=== PATIENT | female | born 1985 | race Caucasian/White ===

== ENCOUNTER 2022-08-23 17:19 | Day surgery (SDC) | payer BC ==
[2022-08-23 18:43] VITALS: BMI 27.8
== END 2022-08-23 19:55 | disposition home or self-care (01) ==
LOC: CSHLD/OP 17:19
PROVIDERS: ATTEND Advanced Practice Midwife
DX: Z36.89 Encounter for other specified antenatal screening (principal); O36.8130 Decreased fetal movements, third trimester, not applicable or unspecified; Z3A.31 31 weeks gestation of pregnancy
CPT/HCPCS: 59025; 76819; 99282

== ENCOUNTER 2022-10-17 18:48 | Inpatient (IN) | payer BC ==
[~2022-10-17 18:48] MED LIST: Bupivacaine 0.25% HCL 30 ML VIAL ONE; Bupivacaine PF 0.5% 30 ML VIAL ONE; Butorphanol Tartrate 1 MG/ML VIAL SLOW IVP PRN; HYDROcodone/Acetaminophen 5/325 mg Tablet PO PRN; Ibuprofen 800 MG TAB PO PRN; Lidocaine 1% (PF) 30 ML VIAL SC PRN; Methylergonovine 0.2 MG/ML VIAL IM PRN; Misoprostol 200 MCG TAB PR PRN; NS w/ Oxytocin 30 units 500 ML IV SCH; Ondansetron PF 4 MG/2 ML Vial IVP PRN; Penicillin G Potassium 5 MILL.UNITS in Sodium Chloride 0.9% 100 ML IVPB SCH; Promethazine HCl 25 MG/ML VIAL IM PRN; hydrALAZINE 20 MG/ML VIAL SLOW IVP PRN
[2022-10-17 19:39] VITALS: BMI 29.1
[2022-10-17] MEDS: Lactated Ringer's 1,000 ML IV SCH ×2 (19:48→23:52)
[2022-10-17] MEDS: Misoprostol 100 MCG TAB VAG SCH ×2 (20:11→23:52)
[2022-10-17 20:56] LABS: Glucose 114 mg/dL (70-105)
[2022-10-17 20:57] LABS: Hemoglobin 12.5 g/dL (12.0-15.5); Mean Corpuscular Hemoglobin 30.3 pg (27.0-33.0); Mean Corpuscular Volume 89.1 fl (81.6-98.3); Mean Platelet Volume 14.4 fl (7.4-10.4); Platelet Count 112 10x3/uL (150-450); RBC Distribution Width 13.9 % (11.5-14.5); Red Blood Cell (RBC) Count 4.13 10x6/uL (3.90-5.03); White Blood Cell (WBC) Count 8.1 10x3/uL (3.5-10.5)
[2022-10-17 21:21] LABS: Syphilis Antibody Nonreactive (Nonreactive); Syphilis Antibody Index 0.04 S/CO (<1.00 Non-Reactive)
[2022-10-17 21:23] LABS: HBSAg Index 0.19 S/CO (0-0.99); Hep B Surf Ag Non-Reactive S/CO (NonReactive)
[2022-10-17 21:49] LABS: ALT (SGPT) 164 U/L (8-55); AST (SGOT) 108 U/L (5-34); Albumin 3.1 g/dL (3.5-5.0); Alkaline Phosphatase 226 U/L (40-110); Anion Gap 14 mmol/L (10-20); BUN (Urea Nitrogen) 14 mg/dL (7.0-18.7); Bilirubin, Total 0.3 mg/dL (0.2-1.2); Calc. Creatinine Clearance 127 mL/min (70-130); Calcium 9.2 mg/dL (7.8-10.44); Carbon Dioxide 19 mmol/L (22-29); Chloride 108 mmol/L (98-107); Estimated GFR 103; Globulin 2.9 g/dL (2.4-3.5); Glucose 85 mg/dL (70-105); Potassium 3.7 mmol/L (3.5-5.1); Sodium 137 mmol/L (136-145)
[2022-10-18] MEDS: Misoprostol 100 MCG TAB VAG SCH ×4 (00:31→13:01)
[2022-10-18 06:33] LABS: #Eosinphils 0.1 10x3/uL (0.0-0.5); #Monocytes 0.7 10x3/uL (0.0-1.1); #Neutrophils 7.4 10x3/uL (1.5-8.4); %Basophils 0.3 % (0.0-2.0); %Eosinophils 0.8 % (0.0-6.0); %Lymphocytes 19.8 % (18.0-47.0); %Monocytes 6.7 % (0.0-10.0); %Neutrophils 71.8 % (40.0-75.0); Mean Corpuscular HGB CONC 34.1 g/dL (32.0-36.0); Mean Corpuscular Hemoglobin 30.2 pg (27.0-33.0); Mean Corpuscular Volume 88.4 fl (81.6-98.3); Mean Platelet Volume 13.9 fl (7.4-10.4); Platelet Count 97 10x3/uL (150-450); RBC Distribution Width 13.8 % (11.5-14.5); Red Blood Cell (RBC) Count 3.98 10x6/uL (3.90-5.03); White Blood Cell (WBC) Count 10.1 10x3/uL (3.5-10.5)
[2022-10-18 06:45] LABS: Creatinine, Urine 81.32 mg/dL (47-110); Protein, Urine Random Quant Less than 10 mg/dL (1-14)
[2022-10-18 06:52] LABS: ALT (SGPT) 166 U/L (8-55); AST (SGOT) 117 U/L (5-34); Albumin 2.9 g/dL (3.5-5.0); Alkaline Phosphatase 231 U/L (40-110); Anion Gap 14 mmol/L (10-20); BUN (Urea Nitrogen) 11 mg/dL (7.0-18.7); Bilirubin, Total 0.6 mg/dL (0.2-1.2); Calc. Creatinine Clearance 140 mL/min (70-130); Calcium 8.8 mg/dL (7.8-10.44); Carbon Dioxide 18 mmol/L (22-29); Chloride 103 mmol/L (98-107); Estimated GFR 115; Globulin 2.9 g/dL (2.4-3.5); Glucose 78 mg/dL (70-105); Potassium 3.5 mmol/L (3.5-5.1); Protein, Total 5.8 g/dL (6.0-8.3); Sodium 131 mmol/L (136-145)
[2022-10-18] MEDS ORDERED: Fentanyl 2 mcg/Bup 0.1% Cadd 100 ML ONE ×2 (07:11→16:33)
[2022-10-18] MEDS: Lactated Ringer's 1,000 ML IV SCH (07:30)
[2022-10-18] MEDS: Fentanyl 2 mcg/Bupivacaine 0.1% Cassette 100 ML EPIDURAL SCH ×2 (07:44→16:37)
[2022-10-18 08:14] LABS: Bilirubin, Total 0.6 mg/dL (0.2-1.2); Lactic Acid 1.2 mmol/L (0.5-2.2)
[2022-10-18] MEDS ORDERED: Lactated Ringer's 500 ML IV PRN (09:15)
[2022-10-18] MEDS ORDERED: Promethazine HCl 25 MG/ML VIAL IM PRN (09:15)
[2022-10-18] MEDS ORDERED: Naloxone HCl 0.4 mg/ml Vial IVP PRN ×2 (09:15)
[2022-10-18] MEDS ORDERED: Moisturizing Cream (Eucerin) 113 GM JAR TOP PRN (09:15)
[2022-10-18] MEDS ORDERED: Communication Order-Pharmacy FS SCH (09:15)
[2022-10-18] MEDS ORDERED: Ondansetron PF 4 MG/2 ML Vial IVP PRN (09:15)
[2022-10-18] MEDS ORDERED: Acetaminophen 325 MG TAB PO PRN (09:15)
[2022-10-18] MEDS ORDERED: diphenhydrAMINE 50 MG/ML VIAL IVP PRN (09:15)
[2022-10-18] MEDS ORDERED: ePHEDrine Sulfate 50 MG/10 ML VIAL SLOW IVP PRN (09:15)
[2022-10-18 11:01] LABS: D-Dimer Test 1.97 mg/L FEU (0.19-0.50); PTT 25.9 sec (22.0-33.0); Prothrombin Time 10.5 sec (9.5-12.1)
[2022-10-18] MEDS: Penicillin G 2.5 MILL.units 2.5 MILL.UNITS in Premix Bag 1 BAG IVPB SCH ×2 (13:02→13:03)
[2022-10-18 15:06] LABS: Hemoglobin 11.4 g/dL (12.0-15.5); Mean Corpuscular HGB CONC 34.2 g/dL (32.0-36.0); Mean Corpuscular Hemoglobin 30.6 pg (27.0-33.0); Mean Corpuscular Volume 89.3 fl (81.6-98.3); Mean Platelet Volume 14.2 fl (7.4-10.4); Platelet Count 95 10x3/uL (150-450); RBC Distribution Width 13.9 % (11.5-14.5); Red Blood Cell (RBC) Count 3.73 10x6/uL (3.90-5.03); White Blood Cell (WBC) Count 8.6 10x3/uL (3.5-10.5)
[2022-10-18 15:13] LABS: ALT (SGPT) 183 U/L (8-55); AST (SGOT) 132 U/L (5-34); Albumin 2.8 g/dL (3.5-5.0); Alkaline Phosphatase 212 U/L (40-110); Anion Gap 13 mmol/L (10-20); BUN (Urea Nitrogen) 11 mg/dL (7.0-18.7); Bilirubin, Total 0.5 mg/dL (0.2-1.2); Calc. Creatinine Clearance 119 mL/min (70-130); Calcium 8.6 mg/dL (7.8-10.44); Carbon Dioxide 19 mmol/L (22-29); Chloride 103 mmol/L (98-107); Estimated GFR 96; Globulin 2.7 g/dL (2.4-3.5); Glucose 81 mg/dL (70-105); Protein, Total 5.5 g/dL (6.0-8.3); Sodium 131 mmol/L (136-145)
[2022-10-18 15:14] LABS: MDiff Complete? YES; Manual Diff?? YES
[2022-10-18 15:40] LABS: Band 4 % (5-11); Lymphocytes 18 % (21-51); Monocytes 5 % (0-10); Neutrophil 72 % (42-75); Platelet Morphology Comment Appears Decreased
[2022-10-18 15:43] LABS: Anisocytosis SLIGHT = 6-15 cells (100X) (0-5/hpf); Giant Platelets SLIGHT; Large Platelets SLIGHT; Macrocytosis SLIGHT = 6-15 cells (100X) (0-5/hpf); Microcytosis SLIGHT = 6-15 cells (100X) (0-5/hpf)
[2022-10-18 20:56] LABS: #Monocytes 0.8 10x3/uL (0.0-1.1); #Neutrophils 7.5 10x3/uL (1.5-8.4); %Basophils 0.4 % (0.0-2.0); %Eosinophils 0.3 % (0.0-6.0); %Lymphocytes 15.8 % (18.0-47.0); %Neutrophils 74.8 % (40.0-75.0); Hemoglobin 12.3 g/dL (12.0-15.5); Mean Corpuscular HGB CONC 33.9 g/dL (32.0-36.0); Mean Corpuscular Volume 88.5 fl (81.6-98.3); Platelet Count 101 10x3/uL (150-450); RBC Distribution Width 13.8 % (11.5-14.5)
[2022-10-18 21:07] LABS: PTT 25.8 sec (22.0-33.0); Prothrombin Time 10.5 sec (9.5-12.1)
[2022-10-18 21:09] LABS: ALT (SGPT) 186 U/L (8-55); AST (SGOT) 129 U/L (5-34); Albumin 2.9 g/dL (3.5-5.0); Alkaline Phosphatase 223 U/L (40-110); Anion Gap 13 mmol/L (10-20); BUN (Urea Nitrogen) 11 mg/dL (7.0-18.7); Bilirubin, Total 0.5 mg/dL (0.2-1.2); Calc. Creatinine Clearance 110 mL/min (70-130); Calcium 8.6 mg/dL (7.8-10.44); Carbon Dioxide 21 mmol/L (22-29); Chloride 103 mmol/L (98-107); Estimated GFR 87; Globulin 2.8 g/dL (2.4-3.5); Glucose 76 mg/dL (70-105); Potassium 4.2 mmol/L (3.5-5.1); Protein, Total 5.7 g/dL (6.0-8.3); Sodium 133 mmol/L (136-145)
[2022-10-19] MEDS: Fentanyl 2 mcg/Bupivacaine 0.1% Cassette 100 ML EPIDURAL SCH ×3 (00:47→16:56)
[2022-10-19] MEDS: Penicillin G 2.5 MILL.units 2.5 MILL.UNITS in Premix Bag 1 BAG IVPB SCH ×3 (01:45→13:42)
[2022-10-19 07:46] LABS: #Monocytes 0.8 10x3/uL (0.0-1.1); #Neutrophils 7.5 10x3/uL (1.5-8.4); %Basophils 0.4 % (0.0-2.0); %Eosinophils 0.4 % (0.0-6.0); %Lymphocytes 17.3 % (18.0-47.0); %Monocytes 8.1 % (0.0-10.0); Hemoglobin 12.1 g/dL (12.0-15.5); Mean Corpuscular HGB CONC 33.8 g/dL (32.0-36.0); Mean Corpuscular Hemoglobin 30.2 pg (27.0-33.0); Mean Corpuscular Volume 89.3 fl (81.6-98.3); Mean Platelet Volume 14.1 fl (7.4-10.4); Platelet Count 100 10x3/uL (150-450); RBC Distribution Width 13.8 % (11.5-14.5); Red Blood Cell (RBC) Count 4.01 10x6/uL (3.90-5.03); White Blood Cell (WBC) Count 10.2 10x3/uL (3.5-10.5)
[2022-10-19 07:47] LABS: ALT (SGPT) 164 U/L (8-55); AST (SGOT) 111 U/L (5-34); Albumin 2.7 g/dL (3.5-5.0); Alkaline Phosphatase 228 U/L (40-110); Anion Gap 15 mmol/L (10-20); BUN (Urea Nitrogen) 11 mg/dL (7.0-18.7); Bilirubin, Total 0.6 mg/dL (0.2-1.2); Calc. Creatinine Clearance 121 mL/min (70-130); Calcium 8.5 mg/dL (7.8-10.44); Carbon Dioxide 18 mmol/L (22-29); Chloride 102 mmol/L (98-107); Estimated GFR 97; Globulin 2.8 g/dL (2.4-3.5); Glucose 84 mg/dL (70-105); Potassium 4.1 mmol/L (3.5-5.1); Protein, Total 5.5 g/dL (6.0-8.3); Sodium 131 mmol/L (136-145)
[2022-10-19] MEDS ORDERED: Fentanyl 100 MCG/2 ML VIAL ONE (13:51)
[2022-10-19 13:59] LABS: #Eosinphils 0.1 10x3/uL (0.0-0.5); #Monocytes 0.8 10x3/uL (0.0-1.1); #Neutrophils 8.2 10x3/uL (1.5-8.4); %Basophils 0.4 % (0.0-2.0); %Eosinophils 0.5 % (0.0-6.0); %Lymphocytes 14.4 % (18.0-47.0); %Monocytes 7.6 % (0.0-10.0); %Neutrophils 76.2 % (40.0-75.0); Hemoglobin 11.8 g/dL (12.0-15.5); Mean Corpuscular HGB CONC 33.9 g/dL (32.0-36.0); Mean Corpuscular Hemoglobin 30.3 pg (27.0-33.0); Mean Corpuscular Volume 89.5 fl (81.6-98.3); Mean Platelet Volume 13.7 fl (7.4-10.4); Platelet Count 105 10x3/uL (150-450); RBC Distribution Width 13.8 % (11.5-14.5); Red Blood Cell (RBC) Count 3.89 10x6/uL (3.90-5.03); White Blood Cell (WBC) Count 10.7 10x3/uL (3.5-10.5)
[2022-10-19 14:18] LABS: ALT (SGPT) 173 U/L (8-55); AST (SGOT) 112 U/L (5-34); Albumin 2.8 g/dL (3.5-5.0); Alkaline Phosphatase 228 U/L (40-110); Anion Gap 13 mmol/L (10-20); BUN (Urea Nitrogen) 11 mg/dL (7.0-18.7); Bilirubin, Total 0.5 mg/dL (0.2-1.2); Calc. Creatinine Clearance 108 mL/min (70-130); Calcium 8.7 mg/dL (7.8-10.44); Carbon Dioxide 20 mmol/L (22-29); Chloride 101 mmol/L (98-107); Estimated GFR 86; Globulin 2.8 g/dL (2.4-3.5); Glucose 71 mg/dL (70-105); Protein, Total 5.6 g/dL (6.0-8.3); Sodium 130 mmol/L (136-145)
[2022-10-19] MEDS ORDERED: Fentanyl 2 mcg/Bup 0.1% Cadd 100 ML ONE (16:50)
[2022-10-19] MEDS ORDERED: Methylergonovine 0.2 MG/ML VIAL ONE (20:05)
[2022-10-19] MEDS ORDERED: Misoprostol 200 MCG TAB ONE (20:05)
[2022-10-19] MEDS ORDERED: Carboprost 250 MCG/ML AMP ONE (20:05)
[2022-10-19] MEDS ORDERED: Ibuprofen 800 MG TAB PO SCH (21:00)
[2022-10-19 22:29] LABS: #Neutrophils 13.9 10x3/uL (1.5-8.4); %Basophils 0.2 % (0.0-2.0); %Eosinophils 0.2 % (0.0-6.0); %Lymphocytes 5.7 % (18.0-47.0); %Monocytes 6.5 % (0.0-10.0); %Neutrophils 86.8 % (40.0-75.0); Hemoglobin 11.8 g/dL (12.0-15.5); Mean Corpuscular HGB CONC 34.4 g/dL (32.0-36.0); Mean Corpuscular Hemoglobin 30.7 pg (27.0-33.0); Mean Corpuscular Volume 89.3 fl (81.6-98.3); Mean Platelet Volume 14.3 fl (7.4-10.4); Platelet Count 122 10x3/uL (150-450); RBC Distribution Width 13.8 % (11.5-14.5); Red Blood Cell (RBC) Count 3.84 10x6/uL (3.90-5.03)
[2022-10-19 22:35] LABS: ALT (SGPT) 177 U/L (8-55); AST (SGOT) 130 U/L (5-34); Albumin 2.7 g/dL (3.5-5.0); Alkaline Phosphatase 212 U/L (40-110); Anion Gap 13 mmol/L (10-20); BUN (Urea Nitrogen) 14 mg/dL (7.0-18.7); Bilirubin, Total 0.5 mg/dL (0.2-1.2); Calc. Creatinine Clearance 80 mL/min (70-130); Calcium 8.5 mg/dL (7.8-10.44); Carbon Dioxide 20 mmol/L (22-29); Chloride 104 mmol/L (98-107); Estimated GFR 59; Globulin 2.6 g/dL (2.4-3.5); Glucose 61 mg/dL (70-105); Potassium 4.3 mmol/L (3.5-5.1); Protein, Total 5.3 g/dL (6.0-8.3); Sodium 133 mmol/L (136-145)
[2022-10-19] MEDS ORDERED: Tranexamic Acid 1,000 MG/10 ML VIAL ONE (23:54)
[2022-10-20] MEDS ORDERED: Misoprostol 200 MCG TAB VAG PRN (03:59)
[2022-10-20] MEDS ORDERED: Bisacodyl 10 MG SUPP PR PRN (03:59)
[2022-10-20] MEDS ORDERED: Boostrix 0.5 ML (Tdap) VIAL (>/=7 yrs of age) IM ONE (03:59)
[2022-10-20] MEDS ORDERED: Benzocaine-Menthol 82.5 ML CAN TOP PRN (03:59)
[2022-10-20] MEDS ORDERED: HYDROcodone/Acetaminophen 5/325 mg Tablet PO PRN ×2 (03:59)
[2022-10-20] MEDS ORDERED: Milk Of Magnesia 30 ML UDCUP PO PRN (03:59)
[2022-10-20] MEDS ORDERED: Lanolin Ointment 7 GM TUBE TOP PRN (03:59)
[2022-10-20] MEDS ORDERED: hydrALAZINE 20 MG/ML VIAL SLOW IVP PRN (03:59)
[2022-10-20] MEDS ORDERED: NS w/ Oxytocin 30 units 500 ML IV SCH (03:59)
[2022-10-20] MEDS ORDERED: Ondansetron PF 4 MG/2 ML Vial IVP PRN (03:59)
[2022-10-20] MEDS ORDERED: Ibuprofen 800 MG TAB PO SCH (04:00)
[2022-10-20] MEDS ORDERED: Docusate 100 MG CAP PO SCH (04:15)
[2022-10-20] MEDS ORDERED: Witch Hazel-Glycerin 1 EACH JAR TOP PRN (05:31)
[2022-10-20] MEDS: Ibuprofen 800 MG TAB PO SCH ×3 (06:00→21:04)
[2022-10-20] MEDS: Lactated Ringer's 1,000 ML IV SCH ×2 (07:27→07:31)
[2022-10-20] MEDS: Misoprostol 100 MCG TAB VAG SCH ×3 (07:27→07:31)
[2022-10-20] MEDS: Penicillin G 2.5 MILL.units 2.5 MILL.UNITS in Premix Bag 1 BAG IVPB SCH ×2 (07:29→07:30)
[2022-10-20] MEDS ORDERED: Preparation H Ointment 28 GM TUBE TOP PRN (08:16)
[2022-10-20] MEDS: Prenatal Vitamin 1 TAB PO SCH (09:33)
[2022-10-20] MEDS: Ferrous Sulfate 325 MG TAB PO SCH ×2 (09:33→15:53)
[2022-10-20] MEDS: Docusate 100 MG CAP PO SCH (21:04)
[2022-10-21] MEDS: Ibuprofen 800 MG TAB PO SCH (05:51)
[2022-10-21 06:08] LABS: #Eosinphils 0.1 10x3/uL (0.0-0.5); #Monocytes 0.6 10x3/uL (0.0-1.1); #Neutrophils 6.9 10x3/uL (1.5-8.4); %Basophils 0.2 % (0.0-2.0); %Eosinophils 1.2 % (0.0-6.0); %Lymphocytes 19.4 % (18.0-47.0); %Monocytes 6.3 % (0.0-10.0); %Neutrophils 72.3 % (40.0-75.0); Hemoglobin 8.1 g/dL (12.0-15.5); Mean Corpuscular HGB CONC 33.2 g/dL (32.0-36.0); Mean Corpuscular Hemoglobin 30.1 pg (27.0-33.0); Mean Corpuscular Volume 90.7 fl (81.6-98.3); Mean Platelet Volume 13.9 fl (7.4-10.4); Platelet Count 116 10x3/uL (150-450); RBC Distribution Width 14.2 % (11.5-14.5); Red Blood Cell (RBC) Count 2.69 10x6/uL (3.90-5.03); White Blood Cell (WBC) Count 9.4 10x3/uL (3.5-10.5)
[2022-10-21 06:18] LABS: ALT (SGPT) 127 U/L (8-55); AST (SGOT) 92 U/L (5-34); Albumin 2.6 g/dL (3.5-5.0); Alkaline Phosphatase 167 U/L (40-110); Anion Gap 11 mmol/L (10-20); BUN (Urea Nitrogen) 13 mg/dL (7.0-18.7); Bilirubin, Total 0.2 mg/dL (0.2-1.2); Calc. Creatinine Clearance 111 mL/min (70-130); Calcium 8.3 mg/dL (7.8-10.44); Carbon Dioxide 22 mmol/L (22-29); Chloride 107 mmol/L (98-107); Estimated GFR 88; Globulin 2.4 g/dL (2.4-3.5); Glucose 71 mg/dL (70-105); Sodium 136 mmol/L (136-145)
[2022-10-21 07:48] VITALS: BP 108/68; TEMP 98.4
[2022-10-21] MEDS: Prenatal Vitamin 1 TAB PO SCH (09:52)
[2022-10-21] MEDS: Docusate 100 MG CAP PO SCH (09:52)
[2022-10-21] MEDS: Ferrous Sulfate 325 MG TAB PO SCH (09:52)
== END 2022-10-21 12:16 | disposition home or self-care (01) | DRG 806 ==
LOC: CSHLD 18:48 → CSHPP 10-20 03:36
PROVIDERS: ADMIT Obstetrics & Gynecology; ATTEND Obstetrics & Gynecology
PROC: 10E0XZZ Delivery of Products of Conception, External Approach (ICD-10-PCS; principal; 2022-10-18)
PROC: 10H07YZ Insertion of Other Device into Products of Conception, Via Natural or Artificial Opening (ICD-10-PCS; 2022-10-18)
PROC: 10907ZC Drainage of Amniotic Fluid, Therapeutic from Products of Conception, Via Natural or Artificial Opening (ICD-10-PCS; 2022-10-18)
PROC: 0HQ9XZZ Repair Perineum Skin, External Approach (ICD-10-PCS; 2022-10-18)
DX: O24.425 Gestational diabetes mellitus in childbirth, controlled by oral hypoglycemic drugs (principal); D62 Acute posthemorrhagic anemia; Z37.0 Single live birth; O72.2 Delayed and secondary postpartum hemorrhage; O99.824 Streptococcus B carrier state complicating childbirth; O14.24 HELLP syndrome, complicating childbirth; O90.81 Anemia of the puerperium; Z3A.39 39 weeks gestation of pregnancy; Z88.2 Allergy status to sulfonamides; Z79.84 Long term (current) use of oral hypoglycemic drugs
CPT/HCPCS: 36415; 51702; 76705; 80053; 82247; 82570; 82947; 83605; 83615; 84156; 85025; 85027; 85049; 85300; 85362; 85379; 85384; 85610; 85730; 86780; 86850; 86900; 86901; 87340; J2405; J2540; J2590; J3490; J7120; S0020